=== PATIENT | female | born 1970 | race African-American/Black ===

== ENCOUNTER 2024-01-23 12:19 | Emergency (ER) | payer MEDICAID, OTHER ==
[~2024-01-23] VITALS: Ht 160 cm; Wt 92.0 kg
[2024-01-23 12:34] VITALS: BP 159/89; PULSE 75; RESP 19; O2SAT 97
[2024-01-23 13:29] LABS: Basophils # (auto) 0 10 ^3/uL (0-0.2); Basophils % (auto) 0.4 % (0.0-2.0); Eosinophils # (auto) 0.1 10 ^3/uL (0-0.8); Eosinophils % (auto) 1.5 % (0.0-7.0); Hematocrit 44.3 % (36.0-46.0); Hemoglobin 15.2 g/dL (12.2-16.2); Lymphocytes # (auto) 2.6 10 ^3/uL (0.4-5.4); Lymphocytes % (auto) 33.8 % (10.0-50.0); Mean Corpuscular Hemoglobin 31.5 pg (28.0-32.0); Mean Corpuscular Hgb Conc. 34.3 g/dL (32.0-36.0); Monocytes # (auto) 0.5 10 ^3/uL (0-1.3); Monocytes % (auto) 6.4 % (0.0-12.0); Neutrophils # (auto) 4.5 10 ^3/uL (1.6-8.6); Neutrophils % (auto) 57.9 % (37.0-80.0); Platelet Count (auto) 246 10^3/uL (140-450); Red Blood Cells 4.82 10^6/uL (4.0-5.20); Red Cell Distribution Width 13.9 % (11.8-14.3); White Blood Cell 7.8 10^3/uL (4.4-10.8)
[2024-01-23] MEDS: NITROGLYCERIN 0.4 MG SL TAB SL ONE (13:30)
[2024-01-23] MEDS: cloNIDine HCL 0.1 MG TAB PO ONE (13:30)
[2024-01-23 13:38] LABS: Chloride 105 mmol/L (98-107); Potassium 3.7 mmol/L (3.5-5.1); Sodium 141 mmol/L (136-145)
[2024-01-23 13:39] LABS: Anion Gap 6 (5-15); Calcium 9.9 mg/dL (8.7-10.4); Carbon Dioxide 30 mmol/L (20-31)
[2024-01-23 13:44] LABS: BUN/Creatinine Ratio 8.2 (10.0-20.0); Blood Urea Nitrogen 9 mg/dL (9-23); Glucose 140 mg/dL (74-106)
[2024-01-23] MEDS: ASPirin 325 MG TAB PO ONE (14:22)
== END 2024-01-23 16:07 | disposition left against medical advice (07) ==
LOC: ER 12:19
DX: R07.89 Other chest pain (principal); R42 Dizziness and giddiness; I10 Essential (primary) hypertension
CPT/HCPCS: 36415; 80048; 84484; 85025; 93005